=== PATIENT | female | born 2000 | race Caucasian/White ===

== ENCOUNTER 2024-01-24 16:34 | Outpatient (CLI) | payer BC, SELFPAY ==
--- NOTE | 2024-01-24 17:00 | CRLHL7_ITS ---
For Patients: As a result of the Century Cures Act, medical imaging exams and procedure reports are released immediately into your electronic medical record. You may view this report before your referring provider. If you have questions, please contact your health care provider. INDICATION: First trimester dating and viability. TECHNIQUE: Ultrasound OB pelvis transabdominal. Real-time esteban-scale imaging of the pelvis was performed. COMPARISON: None. FINDINGS: Intrauterine gestation: Single. heart activity (bpm): 171. [place]-rump length: 2.4 cm. Estimated ultrasound age: 9 weeks 1 day. ANTONIO by ultrasound: 08/27/2024. ANTONIO by LMP: 08/26/2024 Yolk sac: Normal, measuring 4 millimeters. Perigestational hemorrhage: None. Ovaries and adnexa: Normal left ovary with corpus luteum. Right ovary is not visualized. Suspicious pelvic fluid collections: None. IMPRESSION: Lew intrauterine with cardiac activity. Estimated gestational age by LMP is 9 weeks, 2 days, which is concordant with CRL. Normal left ovary with corpus luteum. Right ovary is not visualized. Dictated by Emily Patino MD @ 01/26/2024 7:57:26 AM (Electronically Signed)
== END 2024-01-24 16:35 | disposition home or self-care (01) ==
LOC: US 16:36
PROVIDERS: Visit Provider Physician Assistant
DX: Z34.91 Encounter for supervision of normal pregnancy, unspecified, first trimester (principal); Z3A.09 9 weeks gestation of pregnancy
CPT/HCPCS: 76801; 86703; 86706; 86803; 86850; 86900; 86901; 87086; 87340; 87491; 87591

== ENCOUNTER 2024-01-24 17:57 | Outpatient (CLI) | payer BC, SELFPAY ==
[2024-01-24 20:55] LABS: Chlamydia DNA Amplified* NOT DETECTED (No Detected); GC DNA Amplified* NOT DETECTED (No Detected)
== END 2024-01-24 17:58 | disposition home or self-care (01) ==
PROVIDERS: Visit Provider Physician Assistant
DX: Z34.81 Encounter for supervision of other normal pregnancy, first trimester (principal)
CPT/HCPCS: 86592; 86703; 86704; 86706; 86762; 86787; 86803; 86850; 86900; 86901; 87086; 87340; 87491; 87591

== ENCOUNTER 2024-04-09 13:58 | Outpatient (CLI) | payer BC, SELFPAY ==
--- NOTE | 2024-04-09 14:00 | CRLHL7_ITS ---
For Patients: As a result of the Century Cures Act, medical imaging exams and procedure reports are released immediately into your electronic medical record. You may view this report before your referring provider. If you have questions, please contact your health care provider. HISTORY: anatomic survey. COMPARISON: Early OB ultrasound from 01/24/2024. TECHNIQUE: Ultrasound examination of the is performed with transabdominal technique. Transvaginal ultrasound of the cervix was performed. FINDINGS: A single intrauterine gestation is seen in variable presentation with regular cardiac activity at 139 beats per minute. The placenta is anterior and is free of the cervical os. The placental grade is 0 and the amniotic fluid volume is normal. Single deepest vertical pocket: Normal at 5.9 cm. The cervix is nondilated and normal in length at 3.8 cm. BPD: 4.9 cm 20 weeks 6 days HC: 17.6 cm 20 weeks 1 day AC: 15.3 cm 20 weeks 3 days. Fifty-sixth percentile FL: 3.3 cm 20 weeks 2 days The estimated age by ultrasound is 20 weeks 1 day, with an estimated date of delivery of 08/26/2024. This correlates well with the clinical age of 20 weeks 1 day and the previous ultrasound. The ultrasound ratios are normal. The estimated weight of 350 grams is at the 59th percentile based on the clinical dates. The anatomic survey demonstrates normal appearing intracranial structures with a normal septum pellucidum and normal cerebellum. The nuchal thickness is normal at 4 mm, and the lateral ventricle is normal in diameter at 7 mm. The upper lip, 4 chamber heart, left ventricular outflow tract, diaphragm, stomach, cord insertion site, 3-vessel cord, and bladder are normal in appearance. There is suboptimal visualization of the spine, kidneys, and right ventricular outflow tract because of positioning. IMPRESSION: 1. Single intrauterine gestation in variable presentation with regular cardiac activity. 2. Estimated gestational age is 20 weeks 1 day. 3. There has been appropriate interval growth. 4. Estimated weight of 350 grams is at the 59th percentile based on the clinical dates. 5. Suboptimal visualization of the spine, kidneys, and right ventricular outflow tract because of positioning. Dictated by Guanaco Chris MD @ 04/10/2024 11:09:30 AM (Electronically Signed)
== END 2024-04-09 13:59 | disposition home or self-care (01) ==
LOC: US 13:58
PROVIDERS: Visit Provider Obstetrics & Gynecology
DX: Z34.92 Encounter for supervision of normal pregnancy, unspecified, second trimester (principal); Z87.51 Personal history of pre-term labor; Z3A.20 20 weeks gestation of pregnancy
CPT/HCPCS: 76805; 76817

== ENCOUNTER 2024-04-23 15:49 | Outpatient (CLI) | payer BC, SELFPAY | END 2024-04-23 15:50 | disposition home or self-care (01) | LOC: NFLDREF 04-24 01:15 | DX: R30.0 Dysuria (principal); K52.9 Noninfective gastroenteritis and colitis, unspecified; R39.15 Urgency of urination | CPT/HCPCS: 87086 ==

== ENCOUNTER 2024-04-26 08:42 | Outpatient (CLI) | payer BC, SELFPAY ==
--- NOTE | 2024-04-26 09:15 | CRLHL7_ITS ---
For Patients: As a result of the Century Cures Act, medical imaging exams and procedure reports are released immediately into your electronic medical record. You may view this report before your referring provider. If you have questions, please contact your health care provider. INDICATION: FOLLOW-UP MISSING ANATOMY COMPARISON: 04/09/2024 TECHNIQUE: Real time esteban scale imaging of the fetus was performed. FINDINGS: Amniotic fluid single deepest pocket of 5.4 cm. heart rate 150 beats per minute. Normal spine. Kidneys unremarkable. Normal four-chamber heart. Normal stomach. Renal pelvis measures 3 millimeters bilaterally which is considered normal. Normal aortic arch. Four-chamber view, three-vessel view and three-vessel tracheal view normal along with the outflow tracts. Placenta is anterior. position vertex. IMPRESSION: Normal heart, spine and kidneys. Dictated by Basil Cooper MD @ 04/26/2024 10:59:11 AM (Electronically Signed)
== END 2024-04-26 08:43 | disposition home or self-care (01) ==
LOC: US 08:43
PROVIDERS: Visit Provider Physician Assistant
DX: O35.FXX0 Maternal care for other (suspected) fetal abnormality and damage, fetal musculoskeletal anomalies of trunk, not applicable or unspecified (principal); O35.BXX0 Maternal care for other (suspected) fetal abnormality and damage, fetal cardiac anomalies, not applicable or unspecified; Z3A.00 Weeks of gestation of pregnancy not specified
CPT/HCPCS: 76816

== ENCOUNTER 2024-06-04 08:34 | Outpatient (CLI) | payer BC, SELFPAY | END 2024-06-04 08:35 | disposition home or self-care (01) | LOC: NFLDREF 06-06 08:28 | PROVIDERS: Visit Provider Obstetrics & Gynecology | DX: Z34.93 Encounter for supervision of normal pregnancy, unspecified, third trimester (principal); Z3A.28 28 weeks gestation of pregnancy | CPT/HCPCS: 86592 ==

== ENCOUNTER 2024-07-05 17:45 | Outpatient (CLI) | payer BC, SELFPAY ==
[2024-07-05] VITALS (7 sets, daily range): BP systolic 108; BP diastolic 72; PULSE 76–92; RESP 16; TEMP 36.8; O2SAT 96–99
[2024-07-05 18:56] LABS: Appearance Urine Clear (Clear); Bilirubin Urine Negative (Negative); Blood Urine Negative (Negative); Color Urine Yellow (Yellow); Glucose Urine Negative (Negative); Ketones Urine 2+ (Negative); Leukocyte Esterase Urine Negative (Negative); Nitrite Urine Negative (Negative); Protein Urine Negative (Negative); Urobilinogen Urine 0.2 (0.2-1.0); pH Urine 6.5 (5.0-8.5)
[2024-07-05] MEDS: LACTATED RINGERS 1000 ML 1,000 ML IV (18:59)
[2024-07-05 19:09] LABS: Clue Cells No Clue Cells Seen (None Seen); Trichomonas No Trichomonas Seen (None Seen); Yeast No Yeast Seen (None Seen)
[2024-07-05 19:34] LABS: Fetal Fibronectin* Negative (Negative)
--- NOTE | 2024-07-05 21:40 | PC.OBNST ---
NST Note NST Note Start: 07/05/24 18:28 Freq: ONCE Status: Active Protocol: Document 07/05/24 21:28 ANDRAEAdalgisa (Rec: 07/05/24 21:37 KAY Desktop) NST Note 2 Para (# of births) 1 EDC 08/26/24 Gestational Age In Weeks & Days 32 Weeks & 4 Days High Risk Factors History of Labor/ Delivery Patient Presented with Complaint(s) of Contractions/cramping Other Complaints Pt came to unit for labor rule out. Reactive Yes Appropriate for Gestational Age Yes RN Ashwin Baeza RN Date 07/05/24 Reactive Yes Appropriate for Gestational Age Yes BOB Aly RN Date 07/05/24 OB NST charge Yes Complete NST Note via Write Note Yes The provider's electronic signature indicates the NST is reactive/appropriate for gestational age. *Note to provider: If an addendum is required, open the patient's chart and click on the note under the Nurse/Allied Health tab.
== END 2024-07-05 20:50 | disposition home or self-care (01) ==
LOC: OB OUT 17:45 → OB 17:45
PROVIDERS: Visit Provider Obstetrics & Gynecology
DX: O47.03 False labor before 37 completed weeks of gestation, third trimester (principal); Z3A.32 32 weeks gestation of pregnancy
CPT/HCPCS: 59025; 81003; 84112; 87086; 87210; G0463; J7120

== ENCOUNTER 2024-07-11 11:08 | Outpatient (CLI) | payer BC, SELFPAY ==
--- NOTE | 2024-07-11 11:30 | CRLHL7_ITS ---
For Patients: As a result of the Century Cures Act, medical imaging exams and procedure reports are released immediately into your electronic medical record. You may view this report before your referring provider. If you have questions, please contact your health care provider. LMP: . ANTONIO by LMP: 08/26/2024. GA: 33w, 3d. Single. COMPARISON: 04/26/2024, 04/09/2024, 01/24/2024. INDICATION: Check growth, size and dates. CERVIX: Not visualized. POSITIONING: Vertex. AMNIOTIC FLUID: 5.0 cm SDP. PLACENTA: Technique: Transabdominal. PLACENTA POSITION: Anterior. Biometry: BPD: 8.5 cm. 34w, 2d, 69.5 percent. HC: 30.3 cm. 33w, 4d, 18.9 percent. AC: 29.9 cm. 33w, 6d, 66.0 percent. FL: 6.3 cm. 32w, 3d, 14.7 percent. FL/AC ratio: 20.9 percent. HC/AC ratio: 1.0. EFW: 2202 g. Weight: 4 lbs, 14 oz. age by this US: 33w, 4d. ANTONIO by this US: 08/25/2024. Percentile by ANTONIO: 42.8 percent. IMPRESSION: 1. Sonographic gestational age 33 weeks 4 days and sonographic due date 08/25/2024. Good correlation with dates. 2. Estimated weight 43rd percentile. Abdominal circumference 66th percentile. Basil Cooper M.D. [email or web address] ELINA/payton / bM/Dictated by: Basil Cooper MD @ 07/11/2024 5:47:00 PM (Electronically Signed)
== END 2024-07-11 11:09 | disposition home or self-care (01) ==
LOC: US 11:08
PROVIDERS: Visit Provider Obstetrics & Gynecology
DX: O26.843 Uterine size-date discrepancy, third trimester (principal); Z3A.33 33 weeks gestation of pregnancy
CPT/HCPCS: 76816

== ENCOUNTER 2024-07-23 10:03 | Outpatient (CLI) | payer BC, SELFPAY ==
[2024-07-24 13:58] LABS: Strep B DNA Probe Negative (Negative)
[2024-07-24 14:02] LABS: Strep B Susceptibility Needed? No
== END 2024-07-23 10:04 | disposition home or self-care (01) ==
LOC: NFLDREF 10:03
PROVIDERS: Visit Provider Obstetrics & Gynecology
DX: Z34.83 Encounter for supervision of other normal pregnancy, third trimester (principal)
CPT/HCPCS: 87081; 87653

== ENCOUNTER 2024-08-01 10:27 | Outpatient (CLI) | payer BC, SELFPAY ==
[2024-08-01 10:39] VITALS: BP 114/71; PULSE 90; RESP 16; TEMP 36.7; O2SAT 98
--- NOTE | 2024-08-01 13:24 | PC.OBNST ---
NST Note NST Note Start: 08/01/24 10:31 Freq: ONCE Status: Discharge Protocol: Document 08/01/24 13:23 [facility] (Rec: 08/01/24 13:23 [facility] No Response) NST Note 2 Para (# of births) 1 EDC 08/26/24 Gestational Age In Weeks & Days 36 Weeks & 3 Days Patient Presented with Complaint(s) of Contractions/cramping Reactive Yes Appropriate for Gestational Age Yes RN Case RN Date 08/01/24 Reactive Yes Appropriate for Gestational Age Yes RN Cuddy RN Date 08/01/24 OB NST charge Yes Complete NST Note via Write Note Yes The provider's electronic signature indicates the NST is reactive/appropriate for gestational age. *Note to provider: If an addendum is required, open the patient's chart and click on the note under the Nurse/Allied Health tab.
[2024-08-01 13:29] LABS: Appearance Urine Clear (Clear); Bilirubin Urine Negative (Negative); Blood Urine Negative (Negative); Color Urine Yellow (Yellow); Glucose Urine Negative (Negative); Ketones Urine Negative (Negative); Leukocyte Esterase Urine Negative (Negative); Nitrite Urine Negative (Negative); Protein Urine Negative (Negative); Specific Gravity Urine 1.015 (1.000-1.030); Urobilinogen Urine 0.2 (0.2-1.0); pH Urine 7.5 (5.0-8.5)
--- NOTE | 2024-08-01 21:28 | P.OBLDTN_ITS ---
OB - Triage/Final Diagnosis Visit Information Narrative: The patient is a 24 year old 2 para 1 at 36 weeks gestation by LMP, who presents to triage with concern for rupture membranes. is complicated by history of spontaneous at 36 weeks and threatened labor. Patient presented to triage earlier in the day for rule out labor, at which time her cervix was 2.5/40/-3 by RN exam is unchanged across several hours of monitoring. Patient called later this evening, noting leaking of fluid that occurred with the onset of a sneeze. On arrival, she was found to be hemodynamically stable. She continues to be trevor about every 5 minutes, where she describes these as uncomfortable but not painful. She notes that these are unchanged from the contractions to she was experiencing earlier today. Denies vaginal bleeding. She notes when she sneezes, she had leaking that she estimates to be about 4 tbsp in volume. She notes this was clear and watery. She has not noticed any ongoing leakage since that time. Perineum did appear damp by RN at time of AmniSure collection, this returned as negative. Given her risk factors for labor in story, I presented the bedside for speculum exam. On exam, patient is well-appearing. She does not seem to grimace or position with onset of contractions. She had been lying in bed for some time prior to my examination. On exam, peroneum appears dry. Speculum was inserted, where vaginal mucosa is pink and well rugated. Some cervical mucus is noted and scant white physiologic discharge seen proximally. No pooling of fluid. No leaking of fluids through the cervical os seen. Swab obtained for wet prep and ferning. I presented to the lab, where microscopy was performed and ferning was negative. Cervical exam was performed 240/-3 by my check, unchanged from previous. Reactive NST noted. Explained that her evaluation for PPROM is reassuring at this time, given negative pooling, ferning and AmniSure. Patient notes her contractions remain unchanged, but her cervix has not changed since her presentation this afternoon. Explained that it is safe for her discharge at home at this time. Very strict return precautions reinforced given her history. Certainly if she has persistent leaking, I would recommend she return for re-evaluation. Recommend she return for any vaginal bleeding, decreased movement or persistent/worsening regular painful contractions. Patient is status post betamethasone, where no late corticosteroids as a rescue course would be indicated. All questions answered. Patient expressed understanding and is agreeable to plan. Strict return precautions reinforced. Evaluation Laboratory results: Laboratory Tests 08/01/24 Range/Units Unknown Urine Color Yellow (Yellow) Urine Appearance Clear (Clear) Urine pH 7.5 (5.0-8.5) Ur Specific [place] 1.015 (1.000-1.030) Urine Protein Negative (Negative) Urine Glucose (UA) Negative (Negative) Urine Ketones Negative (Negative) Urine Blood Negative (Negative) Urine Nitrite Negative (Negative) Urine Bilirubin Negative (Negative) Urine Urobilinogen 0.2 (0.2-1.0) Ur Leukocyte Esterase Negative (Negative) Vital signs: Vital Signs - 24 hr 08/01/24 10:39 08/01/24 10:39 Temperature 98.1 F Pulse Rate 90 Respiratory Rate 16 Blood Pressure 114/71 Pulse Oximetry 98
--- NOTE | 2024-08-29 17:47 | PC.OBNST ---
NST Note NST Note Start: 08/01/24 10:31 Freq: ONCE Status: Discharge Protocol: Document 08/01/24 13:23 [facility] (Rec: 08/01/24 13:23 [facility] No Response) NST Note 2 Para (# of births) 1 EDC 08/26/24 Gestational Age In Weeks & Days 36 Weeks & 3 Days Patient Presented with Complaint(s) of Contractions/cramping Reactive Yes Appropriate for Gestational Age Yes RN Case RN Date 08/01/24 Reactive Yes Appropriate for Gestational Age Yes RN Cuddy RN Date 08/01/24 OB NST charge Yes Complete NST Note via Write Note Yes The provider's electronic signature indicates the NST is reactive/appropriate for gestational age. *Note to provider: If an addendum is required, open the patient's chart and click on the note under the Nurse/Allied Health tab.
== END 2024-08-01 13:19 | disposition home or self-care (01) ==
LOC: OB OUT 10:27 → OB 10:28
PROVIDERS: Visit Provider Obstetrics & Gynecology
DX: O09.213 Supervision of pregnancy with history of pre-term labor, third trimester (principal); O47.03 False labor before 37 completed weeks of gestation, third trimester; Z3A.36 36 weeks gestation of pregnancy
CPT/HCPCS: 59025; 81003; 84112; 87210; G0463

== ENCOUNTER 2024-08-10 05:21 | Inpatient (IN) | payer BC, SELFPAY ==
[2024-08-10] VITALS (42 sets, daily range): BP systolic 104–125; BP diastolic 55–81; PULSE 65–113; RESP 16–18; TEMP 36.4–37.1; O2SAT 91–100; BMI 24.4
[2024-08-10] MEDS: LACTATED RINGERS 1000 ML 1,000 ML IV (05:45)
[2024-08-10 05:51] LABS: Basophils Percent Auto 0.3 % (0.0-3.0); Eosinophils Percent Auto 0.2 % (0.0-7.0); Hematocrit 34.2 % (33.0-51.0); Hemoglobin* 11.7 gm/dL (12.0-16.0); Immature Granulocytes Pct Auto 0.3 %; Lymphocytes Percent Auto 17.8 % (20-44); Mean Corpuscular HGB Conc 34 gm/dL (32-36); Mean Corpuscular Hemoglobin 30 pg (26-34); Mean Corpuscular Volume 88 fL (80-100); Monocytes Percent Auto 5.4 % (0.0-11.0); Platelet Count* 215 K/uL (140-440); RDW Coefficient of Variation % 12.5 % (11.5-15.5); Red Blood Count 3.91 m/uL (4.00-5.20); White Blood Count* 14.18 K/uL (4.50-11.00)
[2024-08-10 06:29] LABS: Slide Review Reflex No
[2024-08-10] MEDS: LIDOCAINE 2% (PF) 5 ML VIAL EPIDURAL (06:32)
[2024-08-10] MEDS: ROPIVACAINE 0.2% 100 ml 100 ML 12 MG EPIDURAL (06:33)
--- NOTE | 2024-08-10 06:44 | P.ANBPRC_ITS ---
[facility] Medical History Vacuum-assisted vaginal delivery ?Z37.9 - Outcome of delivery, unspecified (ICD-10) Social History Narrative: SOCIAL HISTORY: Occupation: RN. Marital status: . Yazdanism/cultural needs: Denies. Chemical or radiation exposure: No. Pre- tobacco use: No. Pre- alcohol use: No. Current tobacco use: No. Current alcohol use: No. Recreational drug use: No. Dietary restrictions: No. Blood transfusion acceptable in an emergency: Yes. PSYCHOSOCIAL HISTORY: History of depression or currently depressed: Denies. Current or past physical, emotional, or sexual mistreatment: Denies. Problems that will make it hard to make it to appointments: No. What is your current living situation?: I presently have a place to live Problems where you live: no known problems In the past 12 months, utilities in danger of being shut off: no In past 12 months, lack of transportation kept you from medical appts, meetings, work, or getting things needed for daily living: no In the past 12 mos, have been you worried that your food would run out before you had money to buy more?: never true In the past 12 mos, the food you bought just didn't last and you didn't have money to buy more?: never true Smoking Status: Never smoker How often does anyone, including family, friends and others, physically hurt you : never How often does anyone, including family, friends and others, insult or talk down to you: never How often does anyone, including family, friends and others, threaten you with harm: never How often does anyone, including family, friends and others, scream or curse at you: never Meds Home Medications and Allergies Home Medications ?Medication ?Instructions ?Recorded ?Confirmed ?Type acetaminophen 500 mg tablet 1,000 mg PO Q6H PRN 01/24/24 08/10/24 History (Tylenol Extra Strength) docosahexaenoic acid 200 mg 200 mg PO DAILY 01/24/24 08/10/24 History capsule ( DHA) famotidine 20 mg tablet (Pepcid) 20 mg PO QDAY 02/20/24 08/10/24 History Allergies Allergy/AdvReac Type Severity Reaction Status Date / Time No Known Drug Allergies Allergy Verified 08/06/24 08:51 Results Labs Labs: Laboratory Results - last 24 hr 08/10/24 05:38 WBC 14.18 H RBC 3.91 L Hgb 11.7 L Hct 34.2 MCV 88 MCH 30 MCHC 34 RDW Coeff of Chris 12.5 Plt Count 215 Neut % (Auto) 76.0 H Lymph % (Auto) 17.8 L Wood % (Auto) 5.4 Eos % (Auto) 0.2 Baso % (Auto) 0.3 Neut # (Auto) 10.80 H Lymph # (Auto) 2.50 Wood # (Auto) 0.80 Eos # (Auto) 0.00 Baso # (Auto) 0.00 Abs Immat Gran (auto) 0.00 Imm/Tot Granulo (auto) 0.3 Vital Signs Vital Signs: Last Vital Signs Temp 97.8 F 08/10/24 06:07 Pulse 80 08/10/24 06:43 Resp 16 08/10/24 06:07 BP 120/77 08/10/24 06:43 Pulse Ox 100 08/10/24 06:42 Weight: 66.678 kg Height: 165.1 cm Anesthesia Procedures Epidural Insertion Patient Location: OB Start Time: 06:00 Stop Time: 07:00 Start Date: 08/10/24 Stop Date: 08/10/24 Reason for Block: primary anesthetic Patient Position: sitting Performed By: Carlos Guzman Preanesthetic Checklist: IV checked, risks and benefits discussed, surgical consent, monitors and equipment checked, pre-op evaluation, timeout performed and anesthesia consent Prep: chlorhexidine gluconate Monitoring: blood pressure monitoring, ekg monitor tech, continuous pulse oximetry and heart rate Approach: midline Vertebral Space: lumbar (1-5) Needle Type: Tuohy needle Injection Technique: continuous catheter Needle gauge: 17 Needle Length (cm): 10 cm Needle Insertion Depth (cm): 6 Catheter Gauge: 19 Catheter Type: multi-orifice Catheter at skin depth (cm): 12 Test Dose Result: negative and lidocaine 1.5% with epinephrine 1 to 200,000 Events: other
--- NOTE | 2024-08-10 07:12 | P.LDBA_ITS ---
Subjective History of Present Illness Date Seen: 08/10/24 Narrative: Patient is being admitted to Labor and Delivery in spontaneous labor for delivery. She is a 24 year old at 37 5/7 weeks gestation. Her full history and physical was dictated by Dr. Tiwari on 07/30/24. Please see this for details. Patient presented to triage last night and cervix was found 2cm dilated, she was sent home and returned this morning at around 5 am and was found 4cm dilated with painful contractions admitted in labor. Specific Issues/Plans Partner: Vin Son: Jorge Baby: Boy! H&P: 07/30/[address] Tiwari # history of labor and delivery at 36 weeks * TV for cervical length at 20 weeks: 3.8 cm # cervical change noted at 33 weeks gestation * Evaluated in Center for labor on 07/05/2024, negative fFN, negative UA/UC, negative wet prep. Cervix 1 cm dilated. * Betamethasone administered 07/10/2024 and 07/11/2024 #Threatened labor at 36 weeks - /-3 in triage, PPROM ruled out by amnisure/pooling/ferning # Fundal height small for dates noted 07/10/2024 * Growth ultrasound scheduled for 07/11/2024: EFW: 42.8%, AC: 66%. SDP: 5cm # history of vacuum assisted vaginal delivery, intolerance to labor # suboptimal anatomy views of spine, kidneys, RVOT Follow-up ultrasound in 2 weeks: normal Imagin04/09/24: anatomy scan. Anterior placenta without previa. Normal fluid. AC 56%. EFW 59%. Suboptimal visualization of spine, kidneys, and RV OT. Otherwise normal anatomy. 04/26/2024: Normal heart, spine, and kidneys. IMMUNIZATIONS: Covid: declined Flu: 02/20/24 Tdap: 06/18/24 32 week mental health: [] GBS: 07/23/24 Negative Last pap: 12/26/2019 OB - Problem Based A/P Additional Plan (1) : Status: Acute Plan 1. Expect vaginal delivery soon. 2. Epidural in place for pain management. 3. GBS negative no need for antibiotic prophylaxis. OB Exam Physical Exam Vital signs: Temp Pulse Resp BP Pulse Ox 97.8 F 72 16 125/80 91 04/11/25 06:07 08/10/24 06:58 08/10/24 06:07 08/10/24 06:58 08/10/24 07:03 Detailed Labor and Delivery Exam Dilation (cm): 9 Effacement (%): 100 Cervix position: anterior Consistency: soft Fetus (Single) Station: +1 Amniotic Membrane Status: intact Heart Rate Baseline: 125 Monitor Accelerations: Present Monitor Decelerations: Prolonged (At 0702 this morning, patient checked and found a rim-most likely associated to rapid cervical change, descent. Recovered and previous to this category 1. ) [facility] Variability: Moderate (6-25)
[2024-08-10] MEDS: LACTATED RINGERS 1000 ML 1,000 ML 825 ML IV (07:35)
[2024-08-10] MEDS: OXYTOCIN 30 unit/500 ML in NS 30 UNIT/500 ML BAG IVPB (08:21)
[2024-08-10] MEDS: LACTATED RINGERS 500 ML 500 ML 1200 ML IV (08:29)
--- NOTE | 2024-08-10 08:49 | W.PM.OBVAGDE ---
OB Procedure Vag Delivery Mother Details Mother Details: The patient is a 24 year-old, 2, Para 1, admitted on 08/10/24 at 37 5/7 Days gestation. Patient admitted in labor for delivery. Epidural placed for pain management. Cervical dilation progressed quickly, patient was found a rim at around 7am this morning, patient complained of increased vaginal pressure and I checked her and was able to reduce cervix and patient started to push with contractions. Pushed effectively, although had been laboring all night and felt very tired. : 2 Para: 2 Weeks Gestation: 37.5 Admission Date: 08/10/24 Additional Details Amniotic Membrane Status: SROM Amniotic Membrane Rupture Date: 08/10/24 Amniotic Membrane Rupture Time: 07:05 Amniotic Membrane Fluid Description: Clear Analgesia/Anesthesia Type: Epidural Waterbirth: No Pitcoin: Yes (During second stage-due to maternal exhaustion) Intrapartal Events: Labor Augmentation Delivery augmentation: pitocin Labor Onset: 19:30 Complete: 07:37 Pushin:37 Heart: heart tones during second stage were category 2. Deep variable decelerations with contractions, recovered in between contractions. Delivery Details Delivery Date: 08/10/24 Delivery Time: 08:35 Route of delivery: Gender: Male Viability: Alive; Heart Rate Present Position at Delivery: OA Delivery Details: Delivered via spontaneous vaginal delivery. Infant was placed on maternal abdomen.? Cord was clamped and cut after a 30-60 second delay. Nose and mouth were bulb suctioned.? Infant weight pending. 1 Minute Interval Total Score: 7 5 Minute Interval Total Score: 9 Additional Details Shoulder Dystocia: No Placenta Delivery Time: 08:41 Placental Delivery Description: Spontaneous Procedure Done: Global Blood Loss: 200 Laceration: None Episiotomy Description: None Blood Loss Measurement Type: QBL Bakri Used: No Sponge/Need Count Correct: Yes Cord Vessel Description: 3 Vessels and Nuchal Cord (Times 2, easily reduced after delivery.) Event Summary Status: Mother and were stable after delivery. Disposition: floor
[2024-08-10] MEDS: IBUPROFEN 600 MG TABLET PO ×2 (12:26→19:28)
[2024-08-10] MEDS: LANOLIN CREAM 1 APPLIC TOPICAL (12:36)
[2024-08-10] MEDS: ACETAMINOPHEN 500 MG TABLET 1000 MG PO (16:55)
[2024-08-11] MEDS: IBUPROFEN 600 MG TABLET PO ×2 (04:04→12:22)
[2024-08-11 04:15] VITALS: BP 118/73; PULSE 65; RESP 16; TEMP 36.2
[2024-08-11 04:31] LABS: Hemoglobin* 10.2 gm/dL (12.0-16.0)
--- NOTE | 2024-08-11 08:28 | PM.ANPOST ---
Post Anesthesia Note Post Anesthesia Note Patient seen: Inpatient Respiratory Status: adequate Cardiovascular Status: adequate Mental Status: baseline Pain: adequate Temp: baseline Anesthetic awareness: no Complications: none Follow care: none
[2024-08-11 09:00] VITALS: BP 112/76; PULSE 73; RESP 16; TEMP 36.4
[2024-08-11] MEDS: DOCUSATE SODIUM 100 MG CAPSULE PO (09:22)
[2024-08-11] MEDS: ACETAMINOPHEN 500 MG TABLET 1000 MG PO (09:23)
--- NOTE | 2024-08-11 11:42 | P.DS_ITS ---
DS: Providers Provider Time Seen by Provider: 11:45 Date Seen: 08/11/24 Date of admission: 08/10/24 05:21 Primary care physician: Not a Local Provider Admitting Clinician: Bella Nash MD Attending Physician on discharge: Bella Nash MD Exam Narrative: Exam Narrative: General: Alert and oriented, in no acute distress Psych: Appropriate mood and affect Abdomen: Soft, non-tender and non-distended. Fundus palpates 2 below umbilicus. Pelvic: External genital exam notable for a 1 cm flap of hymenal tissue externally, is freely mobile. It does not appear traumatized or secondary to recent delivery. Patient notes that she was told that the provider notice this even while pushing, but she had never noticed it. I suspect this may have been disruption of her hymen her previous delivery, where this is just more pronounced in the immediate period. Const: Vital Signs, click to edit/add: Vital Signs - 24 hr 08/10/24 12:27 08/10/24 17:04 08/10/24 19:39 Temperature 98.3 F 97.6 F 97.7 F Pulse Rate [Pulse Oximeter] 78 73 67 Respiratory Rate 16 16 16 Blood Pressure [Le ft Arm] 108/68 107/72 106/62 Pulse Oximetry 97 99 Oxygen Delivery Me thod Room Air Room Air Room Air 08/10/24 23:41 08/11/24 04:15 08/11/24 09:00 Temperature 98.1 F 97.1 F L 97.5 F L Pulse Rate [Pulse Oximeter] 69 65 73 Respiratory Rate 18 16 16 Blood Pressure [Le ft Arm] 111/68 118/73 112/76 Pulse Oximetry Oxygen Delivery Me thod Room Air Room Air OB - DS: Summary Hospital Course Hospital Course: The patient is a 24 year old G 2 P 2 at 37 weeks gestation that was admitted to the Center on 08/10/24 for spontaneous onset of labor. She had an uncomplicated vaginal delivery. She delivered a viable female infant. She is breast feeding. the patient has done well. She endorses abdominal pain/cramping, particularly when . Patient is tolerating PO intake without nausea/vomiting. Lochia is described as moderate, no concerns. She is passing flatus and had a BM. She is voiding without difficulty. Ambulates without any dizziness or lightheadedness. She is without difficulty, no concerns. Time spent discussing smoking cessation with patient: 3 to 10 minutes [place] Gender: Male Time Spent with Patient Time attestation: Total time spent providing and/or coordinating discharge services: Discharge Plan Discharge Disposition: Home, Self-Care Date of Admission: 08/10/24 05:21 Primary Care Provider: Provider,Not a Local Condition: Stable Anticipated Discharge Date/Time: 08/11/24 11:53 Discharge Medications: Continued famotidine [Pepcid] 20 mg tablet 20 mg PO QDAY omeprazole 20 mg capsule,delayed release(DR/EC) 20 mg PO BID Qty: 60 0RF DHA 200 mg capsule 200 mg PO DAILY acetaminophen [Tylenol Extra Strength] 500 mg tablet 1,000 mg PO Q6H PRN Discharge Orders: Discharge Order (Routine); Ordered 08/11/24 Ordered By: Daylin Gonzales Additional Instructions: Discharge instructions were reviewed with the patient including signs and symptoms of infection and home going medications Nothing vaginally for 6 weeks: no tampons or intercourse Do not drive while taking narcotic pain medication(s) Off Work or School for 8 weeks Symptoms to report to doctor: * Bleeding that saturates more than one pad per hour * Passing clots larger than the size of a golf ball * Pain not relieved by prescribed medication * Fever above 100.4 degrees Fahrenheit * A foul vaginal odor * Difficulty in emotions, mood, and functions * Thoughts of hurting yourself and/or * Painful, reddened area in your breast * Any drainage, redness, or tenderness in your IV/epidural site * Severe headache that doesn't improve after taking medications * Changes in vision, including temporary loss of vision, blurred vision, and/or light sensitivity * Upper abdominal pain (usually under ribs on the right side) * Decrease in urination or painful, frequent urinating * Chest pain * Shortness of breath * Tenderness or pain with redness and/swelling in the calf(s) of your leg Optional 2-week visit: discuss feeding concerns, review control options and screen for anxiety/depression. 6-week visit for an annual exam. consultation services are available to all mothers and babies for the first year after delivery.? To make an appointment, please call [phone]. Follow Up Appointments: Provider,Not a Local [Primary Care Provider] - Forms: garbs Info Instructions
[2024-08-11 17:37] LABS: Rapid Plasma Reagin (RPR) Non Reactive (Non Reactive)
== END 2024-08-11 13:00 | disposition home or self-care (01) | DRG 560 ==
LOC: OB OUT 05:22 → OB 05:22
PROVIDERS: Obstetrics & Gynecology; Admitting Provider Obstetrics & Gynecology; Visit Provider Obstetrics & Gynecology
DX: O76 Abnormality in fetal heart rate and rhythm complicating labor and delivery (principal); Z3A.37 37 weeks gestation of pregnancy; Z37.0 Single live birth; Z87.51 Personal history of pre-term labor; O75.89 Other specified complications of labor and delivery; K21.9 Gastro-esophageal reflux disease without esophagitis
CPT/HCPCS: 01967; 36415; 59025; 85018; 85025; 86592; G0463; A9270; J2795; J3010; J7120

== ENCOUNTER 2024-08-16 12:34 | Outpatient (CLI) | payer BC, SELFPAY ==
--- NOTE | 2024-08-16 13:39 | W.PM.LAC.MC ---
Consult Note - Mom Date of Visit Date of visit: 08/16/24 Reason for consultation: Assistance Needed, Breast/Nipple Issue (nipple pain) and Other (infant with questionable tongue tie) Visit Code: Visit Patient's Information Phone number: [phone] : 2 Para: 2 Allergies No Known Drug Allergies Allergy (Verified 08/06/24 08:51) Mother's Medical History: Medical History (Updated 08/14/24 @ 00:00 by Background Daemon) Vacuum-assisted vaginal delivery ?Z37.9 - Outcome of delivery, unspecified (ICD-10) Work Plans: Return to work fall 2024. Delivery Information Delivery type: Vaginal Gestational Age: 37+5 Weight: 2.98 kg Discharge Weight: 2.834 kg Percentage weight loss: 4.9 Baby's Information Baby's Age at Visit: 6 days Baby's Provider or Clinic: [facility] Jaundice: Yes Past Experience Past Experience: Yes Current Frequency of Day Feedings: every 3 hrs, needs to be wakened for feedings Frequency of Night Feedings: same Both Breasts: Yes (offered, sometimes only takes one side) Suck: ok, gets tired after abuot 10 minutes Latch: could be deeper, sometimes pinchy, sometimes clicking sounds heard Length of Time: 10 minutes or so on first side, offered 2nd side, only takes occas Goals: at least 1 year Pumping Pumping: Yes ([place] when needed for fullness) Quantity Pumped: 1.5-2oz Supplementing EBM Supplement: No Formula Supplement: No Baby Elimination Number of Wet Diapers a Day: ea feeding or more Number of BM a Day: ea feeding or more, green/yellow and seedy Breast/Nipple Condition Breast Information: Breasts are symmetrical with rounded lower quadrants, intramammary distance is less than 1.5 inches. Nipples with slight erythema, no cracks/blisters/bleeding. Nipples are supple, everted prior to feeding. Breast Shape: Round Engorgement: No Maternal Nipple Condition - Left: Common Nipple Maternal Nipple Condition - Right: Common Nipple Sore Nipples: Yes Interventions for Sore Nipples: Lansinoh/Nipple Cream Baby Assessment Skin: Yellow (yellow to belly) Tongue/frenulum: Restricted-frenulum attaches at tip of tongue, heart shaped and Other (lip tie mild, upper lip flanges over nostrils) Palate: Average Lips: Relaxed and Symmetrical Jaw Alignment: Symmetrical Mucosa: [place], moist Onsite Observation Pre-Feed weight: 2.856 kg (up 76 gm from clinic visit on 08/14) Post-Feed weight: 2.954 kg Milk Transferred (mL): 98 (12 min on left side, 5 min on right) Position: Cross cradle Attachment/latch-on achieved: Easily Suck pattern: Suck burst and normal rest Swallow: Audible, consistent and Gulping Behavior following feed: Alert, content Pre-Nursing Left Nipple: Within Normal Limits and Redness (mild redness) Pre-Nursing Right Nipple: Within Normal Limits and Redness (mild redness) Post-Nursing Left Nipple: Within Normal Limits Post-Nursing Right Nipple: Creased/Beveled (slight crease noted and discussed with mom) Assessments/Interventions Assessments/Interventions: Baby latched well to mom's left breast, mom reports minimal pain with latch; worked with mom to get bottom lip flanged out. Discussed importance of holding jairo snugly to breast to help prevent him slipping of breast as his tongue tires. Baby's cheeks pulling in some-discussed working toward deeper latch with more breast tissue in his mouth to help fill oral space. Jairo nursed well on left breast for 12 minutes and transferred 84 ml. Mom then offered her right breast; jairo did eventually latch although a bit more reluctantly. Nursed for about 5 minutes and transferred 14ml. Clicking sounds heard on this side, likely due to fatigue; discussed this with parents as well Discussed tethered oral tissues (tongue ties, buccal ties, lips ties) with parent(s) Classifications discussed, role of tongue in feedings and how tongue ties can impact this as well as treatment options of [employer] TELLER MANAGER, clipping of anterior tie alone, release of anterior and posterior tie, nothing. Karis BF first child for 15 months; needed a nipple shield for 4-5 months. He also had a lip tie that was released and tongue and buccal ties that were mild and not released-although parents now wonder if they should have been treated. Education provided: Early feeding cues to maximize timing of latching, Asymmetric latch technique for wide/deep latch to increase milk, Transfer for baby and increase comfort for mom, Supply/demand nature of milk supply, Need for frequent stimulation/milk removal, Sore nipple treatment options, Alternative feeding methods (SNS, cup, finger feeding, bottling) (discussed introducing med around 3-4 weeks of age and bottle options), Pumping for milk management and Milk collection, storage Handouts Provided: Suck training Dental referral options Craniosacral therapy options Feeding Plan: Continue feeding every 3 hours minimum, offer both breasts each feeding. If babe decreases in voids/stools, recommend appt for weight check and his nursing efficiency can alter when mom's milk begins to settle in Techniques for deeper latch discussed to assist with maximal milk transfer, keep baby pulled in snug to help prevent him sliding off breast Follow-Up Suggested follow up: Appointment as needed Time Spent Time spent with patient (min): 75 (reviewing EMR and face to face wtih patient, and ) Meds Home Medications and Allergies Home Medications ?Medication ?Instructions ?Recorded ?Confirmed ?Type acetaminophen 500 mg tablet 1,000 mg PO Q6H PRN 01/24/24 08/10/24 History (Tylenol Extra Strength) docosahexaenoic acid 200 mg 200 mg PO DAILY 01/24/24 08/10/24 History capsule ( DHA) famotidine 20 mg tablet (Pepcid) 20 mg PO QDAY 02/20/24 08/10/24 History Allergies Allergy/AdvReac Type Severity Reaction Status Date / Time No Known Drug Allergies Allergy Verified 08/06/24 08:51
== END 2024-08-16 12:35 | disposition home or self-care (01) ==
LOC: OB LAC 12:36
PROVIDERS: Visit Provider Obstetrics & Gynecology
DX: Z39.1 Encounter for care and examination of lactating mother (principal)
CPT/HCPCS: G0463